=== PATIENT | female | born 1970 | race Caucasian/White ===

== ENCOUNTER 2022-08-16 14:41 | Emergency (ER) | payer BC ==
[~2022-08-16] VITALS: Ht 182.9 cm; Wt 104.3 kg
[2022-08-16] MEDS ORDERED: DUI500 PO (17:37)
== END 2022-08-16 17:41 | disposition home or self-care (01) ==
LOC: ER 14:41
DX: S81.811A Laceration without foreign body, right lower leg, initial encounter (principal); W19.XXXA Unspecified fall, initial encounter; Y93.9 Activity, unspecified; Y92.830 Public park as the place of occurrence of the external cause; Y99.9 Unspecified external cause status